=== PATIENT | male | born 1960 | race Caucasian/White ===

== ENCOUNTER 2022-09-02 09:13 | Day surgery (SDC) | payer BC, SELFPAY ==
--- NOTE | 2022-09-01 09:30 | EKG12_ITS ---
Test Reason : PRE-OP Blood Pressure : / mmHG Vent. Rate : 060 BPM Atrial Rate : 060 BPM P-R Int : 150 ms QRS Dur : 090 ms QT Int : 440 ms P-R-T Axes : 066 043 046 degrees QTc Int : 440 ms Normal sinus rhythm Normal ECG Confirmed by ELPIDIO CHANG, CEZAR ([id number]), rewrite editor ALBERTO CASTRO ([id number]) on 09/02/2022 9:18:26 AM Referred By: Dashawn Dent Confirmed By:CEZAR MAGALLANES MD
[2022-09-01 10:20] LABS: Hematocrit 42.3 % (40-54); Mean Corp Hgb Conc 33.1 g/dL (32-36); Mean Corpuscular Hgb 31.1 pg (27.0-32.0); Mean Platelet Vol. 9.4 fl (6.2-12.0); Platelet Count 234 K/mm3 (150-450); RBC Distribution Width CV 14.1 % (11.6-14.6); RBC Distribution Width SD 48.5 fl (35.1-43.9); White Blood Count 5.4 K/mm3 (4.4-11.0)
[2022-09-01 10:50] LABS: Anion Gap 4 (5-15); BUN 14 mg/dL (7-18); BUN/Creat Ratio 16.1 RATIO (10-20); Chloride 104 mmol/L (98-107); Creatinine, Serum 0.87 mg/dL (0.70-1.30); EST Glomerular Filtration Rate 95 mL/min (>60); Est Glom Filt Rate - Afr Amer 115 mL/min (>60); Glucose 112 mg/dL (74-106); Potassium 4.4 mmol/L (3.5-5.1); Sodium Level 138 mmol/L (136-145)
[2022-09-02] VITALS (7 sets, daily range): BP systolic 140–159; BP diastolic 81–99; PULSE 58–71; RESP 16–18; TEMP 36.5–37; O2SAT 94–99; BMI 26.2
[2022-09-02] MEDS: Lactated Ringers 1,000 ML 15 ML IV (09:35)
--- NOTE | 2022-09-02 10:44 | HP.PCM_ITS ---
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 08/26/22 [History Confirmed 08/26/22] [facility] Surgical History? History of right inguinal hernia repair History of surgery on arm Family History? Father Heart disease ?? ? [place] Social History? Smoking Status:? Never smoker alcohol intake:? current alcohol intake frequency: a few times a month HPI HPI HPI: 69-year-old gentleman is being referred by Dr. Giles Shaw for surgical consultation regarding a suspected right inguinal hernia.? A written copy of my surgical consult recommendations will return to him.? By report this is of recent onset within the past 5 to 6 weeks.? Apparently is of additional note that the patient is due for colon cancer screening. The patient has never had a colonoscopy.? 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 He was lifting a heavy gate for the callus and experienced a sharp sudden pain in the right groin with subsequent hernia formation.? He has been using a hernia truss currently to assist him with the discomfort. 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 He otherwise enjoys a very good quality of life.? He has no significant health issues. ROS General General: No weight change, appetite, fatigue, colon cancer, breast cancer or weakness HEENT HEENT: No difficulty swallowing, eye injury, eye surgery, swollen glands or hoarseness Endo Endocrine: No thyroid disease, diabetes mellitus, thyroid cancer, Hair loss, heat intolerance or cold intolerance Skin Skin: No rash or changing moles Breast Breast: No left breast lump, right breast lump, nipple discharge, breast pain, abnormal mammogram, abnormal US or breast enlargement Musc Musculoskeletal: No back problems, arthritis, rheumatoid arthritis, gout or joint pain Cardio Cardiovascular: No murmur, pacemaker, heart disease, atrial fibrillation, high blood pressure, heart attack, heart stent, palpitations, shortness of breat with exertion or chest pain Psych Psychiatric: No depression, anxiety or hearing voices Resp Respiratory: No shortness of breath, No sleep apnea, No cough, No COPD, No asthma, No emphysema and No wheezing Gastro Gastrointestinal: No abdominal pain, No nausea or vomiting, No diarrhea, No constipation, No blood in stool, No acid reflux, No hemorrhoids, No ulcers, No gallbladder problem and No black,tarry stools Seun Hematologic: No blood thinners, No blood disorders, No bleeding, No anemia and No blood clots Neuro Neurologic: No system reviewed and no additional complaints, except as documented, No as per HPI, No abnormal gait, No abnormal hearing, No abnormal movements, No abnormal speech, No behavioral changes, No burning sensations, No confusion, No convulsions, No disequilibrium, No dizziness, No localized weakness, No frequent falls, No headache(s), No lack of coordination, No loss of vision, No memory loss, No numbness, No other visual disturbances, No radicular pain, No restless legs, No sensory deficit, No syncope, No tingling, No tremor(s), No weakness and No other Exam Const General: cooperative, healthy appearing, comfortable and no acute distress [facility] Head: normal to inspection Eyes General: appearance normal, both eyes and all related structures Neck Neck: normal visual inspection Chest Chest palpation & inspection: normal inspection of the chest Resp Effort & Inspection: normal respiratory effort Auscultation: clear to auscultation bilaterally Cardio Rate: regular rate Rhythm: regular rhythm GI Inspection: normal to inspection Auscultation: normal bowel sounds Musc Cervical Spine: normal cervical lordosis Skin General: no rashes or lesions noted Neuro General: patient alert, patient awake and patient oriented x3 Extrem General: no calf tenderness Psych Appearance: grossly normal Assessment and Plan Assessment and Plan (1) Inguinal hernia of right side without obstruction or gangrene: ?Status:?Acute Plan I recommended the patient a laparoscopic right inguinal hernia repair with mesh and I have discussed the technique, benefit, risk and alternatives.? The patient is very much aware that he will require a period of time for recovery.? We have been explicit regarding driving vehicles and weight lifting restrictions.? Clearly he has a very active vigorous lifestyle lifting up to 100 pounds of feed etc.? He is aware that he will need to make an effort to allow others assist with that while he is recovering from surgery.? With that in mind he is requesting that we proceed at earliest convenience so that he is ready to help with the cows in mid September. I appreciate the opportunity assisting with his surgical care Copy: Dr. Giles Dent M.D., F.A.C.S. I have examined the patient and the H&P has been reviewed. There are no clinical changes since date of exam. Dashawn Dent M.D., F.A.C.S.
--- NOTE | 2022-09-02 10:45 | DCINST_ITS ---
Discharge Instructions Procedure General Surgery Diet Discharge Diet: Light diet - advance as tolerated (if you have questions about your diet instructions, please talk to you doctor.) Activity Discharge Activity: May Not Drive (for 3-5 days or while taking narcotic pain medicine.) May shower in (days): 1 Lifting Restrictions: 10 pounds Dressing / Incision Call your doctor if your incision/area has: Continuous Slow Oozing, Sudden Increased Bleeding, Increased Pain/ Swelling, Increased Redness and Foul Smelling Discharge Call your doctor if you observe: Fever of 101 or Higher Suture Line Care: Avoid Pulling/Pushing and Avoid Pinching/Bending Additional Dressing/Incision Instructions:: Change or remove dressing in 4 days. Leave steri-strips in place for 1 week. Follow Up Care Please Follow Up With: Dashawn Dent MD When: Call [phone] to make an appointment to be seen in about 10 days. Test Results: Test results from this visit will be discussed in further detail at your follow- up appointment, if applicable. Discharge Plan Admission Attending Provider: Dashawn Dent Primary Care Provider: Giles Shaw Discharge Orders/Prescriptions Prescriptions: No Action naproxen sodium [Aleve] 220 mg Tablet 220 mg PO Q12H PRN (Reason: Pain) Referrals / Follow Up: Giles Shaw MD [Primary Care Provider] - Disposition Disposition (needs filled in before D/C Order can be placed): Home, Self Care
[2022-09-02] MEDS: Cefazolin 2 GM in 0.9% Normal Saline 100 ML IV (11:13)
--- NOTE | 2022-09-02 12:37 | PCM.OPRPT ---
Report of Operation Date of Procedure: 09/02/22 Pre-Operative Diagnosis: Symptomatic right inguinal hernia Post-Operative Diagnosis: Symptomatic indirect right inguinal hernia Surgery/Procedure Performed:: Laparoscopic right inguinal herniorrhaphy with extra-large Bard 3D max mesh Lot [id number], reference [id number], expiry date 04/25/2027 Description of Surgical Findings:: Timeout informed consent was obtained. 69-year-old gentleman was taken to the operating placed on the table underwent general endotracheal intubation esthesia Ancef 2 g were given intravenously preoperatively the abdomen right groin was sterilely prepped and draped 0.25% Marcaine was used as a local anesthetic throughout the procedure a total of 30 cc was used skin sites were PSIs a vertical infraumbilical incision was created holding sutures of 0 Vicryl placed varies needle inserted saline drop test performed the abdomen was insufflated with CO2 to a pressure of 10 mmHg pressure 10 mm trocar inserted 10 mm laparoscope inserted no evidence of any trocar injuries left groin solid intact indirect inguinal hernia on the right fortunately no current bowel involvement under laparoscopic visualization a ilioinguinal nerve block was performed on the right with the Marcaine 5 mm trochars were placed in the right and left lower quadrant the peritoneum was incised lateral to the internal ring and carried medially and then blunt dissection was used to dissect the peritoneum free. Did blunt dissection until I was clearly able to identify the direct space indirect defect in the femoral area. I had the peritoneum nicely dissected free I placed an extra-large Bard 3D max mesh to cover all 3 defect areas and I secured that laterally superiorly and medially with secure strap excellent coverage was achieved. The blunt dissection was some slight oozing from the inferior epigastric great apex of the mesh. Despite pressure and a Hem-o-karen clip on the small side branch failed to secure it so I then placed fibular and Floseal held pressure and rated and had complete hemostasis. I then approximated the peritoneum to itself using secure strap and Hem-o-karen clips. Complete obliteration to the mesh was achieved. The abdomen was allowed to deflate through an antiviral valve. The fascia at the umbilicus approximated 0 Vicryl [id number] suture. Skin edges approximated 4 Monocryl subdermal stitches. Steri-Strips Telfa OpSite dressings applied sponge and instrument and needle counts were reported to the surgeon to be correct. Specimens none. Drains none. Blood loss 20 cc. Patient tolerated procedure well was taken to the recovery room in satisfactory condition Dashawn Dent M.D., F.A.C.S. Surgeon: Dashawn Dent Type of Anesthesia: General and Local Anesthesiologist: Mathew Smalls
[2022-09-02] MEDS: Acetaminophen 325 MG Tablet 650 MG PO (14:53)
--- NOTE | 2022-09-02 15:15 | SUR.PHASEII ---
After pt d/c, he came back to the unit for swelling at IV site, no active bleeding noted, quarter sized hematoma under skin to lt hand. Mild pressure dressing applied with coban wrap. Pt states he will monitor and return if needed.
== END 2022-09-02 15:14 | disposition home or self-care (01) ==
LOC: SDC 09:16 → AC 09:18
PROVIDERS: PCP Family Medicine; Referring Provider Surgery; Visit Provider Surgery
PROC: (CPT 49650; principal; 2022-09-02 11:15)
DX: K40.90 Unilateral inguinal hernia, without obstruction or gangrene, not specified as recurrent (principal)
CPT/HCPCS: 49650; 00830; 36415; 80048; 85027; 93005; J7120; C1781; J2405